=== PATIENT | female | born 1985 | race African-American/Black ===

== ENCOUNTER → 2016-10-27 | Outpatient (CLI) | payer SELFPAY | LOC: RAD 14:37 | PROVIDERS: ATTEND Nurse Practitioner Women's Health | DX: Z34.81 Encounter for supervision of other normal pregnancy, first trimester (principal) | CPT/HCPCS: 76801 ==

== ENCOUNTER → 2017-08-23 | Outpatient (CLI) | payer SELFPAY ==
--- NOTE | 2017-08-23 15:09 | RADIOLOGY REPORT (SQ) ---
EXAM DESCRIPTION: U/S SQ0ECLC TRNABD 1GES W/ODOP COMPLETED DATE/TIME: 08/23/2017 2:28 pm REASON FOR STUDY: ENCOUNTER FOR SUPERVISION OF NORMAL , UNSPECIFIED FIRST TIME Z34.91 ENCN TR FOR SUPRVSN OF NORMAL PREG, UNSP, FIRST TRIMES COMPARISON: No previous this TECHNIQUE: Transabdominal static and realtime grayscale images acquired of the pelvis. Additional se lected spectral and color Doppler images recorded. All images stored on PACs. bHCG: Not available LIMITATIONS: None. FINDINGS: FETUS: Living intrauterine . EGA: 7 weeks 4 days by crown-rump length ERIKA: 04/07/2018 FHR: 165 beats per minute. SUBCHORIONIC BLEED: Yes SIZE OF BLEED: 1.5 cm in size UTERUS: No masses. No anomalies. Uterus is 11 x 7 x 7 cm in size CERVICAL LENGTH: Not well seen RIGHT ADNEXA: Not visualized due to bowel gas LEFT ADNEXA: Normal ovary with normal vascular flow. Left ovary 3 x 2.7 x 1.7 cm in size No adnexal free fluid. No adnexal masses. FREE FLUID: None. OTHER: No other significant finding. IMPRESSION: LIVING INTRAUTERINE . EGA 7 weeks 4 days. Small subchorionic hemorrhage. Trimester of : First - 0 to 13 weeks. TECHNICAL DOCUMENTATION: JOB ID: [id number] [employer]- All Rights Reserved
== END ==
LOC: RAD 15:20
PROVIDERS: ATTEND Nurse Practitioner Women's Health
DX: Z34.91 Encounter for supervision of normal pregnancy, unspecified, first trimester (principal)
CPT/HCPCS: 76801

== ENCOUNTER 2018-02-26 12:24 | Outpatient (CLI) | payer MEDICAID ==
[2018-02-26 13:13] LABS: APPEARANCE,URINE CLOUDY; BILIRUBIN,URINE NEGATIVE (NEGATIVE); COLOR,URINE YELLOW; GLUCOSE, URINE NEGATIVE (NEGATIVE); KETONES,URINE NEGATIVE (NEGATIVE); LEUKOCYTE ESTERASE,URINE MODERATE (NEGATIVE); NITRITE,URINE NEGATIVE (NEGATIVE); PROTEIN,URINE 100 mg/dL (NEGATIVE); URINE SPECIFIC GRAVITY 1.023
[2018-02-26 13:27] LABS: UR PRO/CREAT RATIO RESULT 0.2 mg/mg (0.0-0.2); URINE CREATININE 329.3 mg/dL (16-327); URINE PROTEIN 61.6 mg/dL (<12)
--- NOTE | 2018-02-26 13:39 | L&D Progress Notes ---
PROGRESS NOTES Datetime Report Generated by CPN: 02/26/2018 13:39 PROGRESS NOTE Impression: Reassuring Heart Rate Procedures- Other: NST and Urine PCR Plan: Discharge Vital Signs : Reviewed; Within Normal Limits Comment: Pt sent over from the office for NST and Urine PCR. Cat 1 NST and urine PCR 0.20. Pt doing well today. Will d/c home and pt is to f/u at the office as scheduled. FETUS A Monitoring: External US FHR Category: Category I SIGNATURE SIGNATURE: [id number] Assignment: Brenda Lerma MD Signature: with User ID: Samuel : with User ID: Samuel
--- NOTE | 2018-02-26 13:51 | Non Stress Test Report ---
Non Stress Test Datetime Report Generated by CPN: 02/26/2018 13:50 DEMOGRAPHIC EGA NST: 34.2 INDICATION Indication for Study: Ordered by Provider MONITORING Monitor Explained: Monitor Explained; Test Explained; Patient Verbalized Understanding Time on Monitor: 02/26/2018 12:38 Time off Monitor: 02/26/2018 13:12 NST Duration: 34 NST INTERVENTIONS NST Interventions: PO Hydration; Reposition Patient Physician Notified NST: N Pack CNM BABY A: [id number] BABY A Movement : Present Contraction Frequency : denies FHR Baseline : 140 Accelerations : 15X15 Variability : Moderate 6-25bpm NST Review: Meets Criteria for Reactive NST NST Review and Verified By : ANI CRAIG, RN NST Results: Reactive NST REPORT Report Trigger: Send Report
== END 2018-02-26 13:44 | disposition home or self-care (01) ==
LOC: LC 12:24
PROVIDERS: ATTEND Obstetrics & Gynecology
PROC: 4A1HXCZ Monitoring of Products of Conception, Cardiac Rate, External Approach (ICD-10-PCS; principal; 2018-02-26)
DX: Z34.83 Encounter for supervision of other normal pregnancy, third trimester (principal)
CPT/HCPCS: 59025; 81001; 82570; 84156

== ENCOUNTER 2018-04-02 05:13 | Inpatient (IN) | payer MEDICAID ==
[2018-03-30 11:44] LABS: APPEARANCE,URINE SLIGHTLY-CLOUDY; BILIRUBIN,URINE NEGATIVE (NEGATIVE); COLOR,URINE YELLOW; GLUCOSE, URINE NEGATIVE (NEGATIVE); KETONES,URINE NEGATIVE (NEGATIVE); LEUKOCYTE ESTERASE,URINE MODERATE (NEGATIVE); NITRITE,URINE NEGATIVE (NEGATIVE); PROTEIN,URINE NEGATIVE (NEGATIVE); URINE SPECIFIC GRAVITY 1.008; UROBILINOGEN,URINE NEGATIVE mg/dL (<2.0)
[2018-03-30 12:17] LABS: URINE AMPHETAMINES SCREEN NEGATIVE; URINE BARBITURATES SCREEN NEGATIVE; URINE BENZODIAZEPINES SCREEN NEGATIVE; URINE COCAINE SCREEN NEGATIVE; URINE METHADONE SCREEN NEGATIVE; URINE PHENCYCLIDINE SCREEN NEGATIVE
[2018-03-30 13:22] LABS: URINE MARIJUANA (THC) SCREEN UNCONFIRMED POSITIVE
[2018-04-01 16:04] LABS: ABSOLUTE EOSINOPHILS # (AUTO) 0.1 10^3/uL (0.0-0.6); ABSOLUTE LYMPHOCYTES (AUTO) 2.1 10^3/uL (0.5-4.7); ABSOLUTE MONOCYTES (AUTO) 0.5 10^3/uL (0.1-1.4); ABSOLUTE NEUT (AUTO) 5.1 10^3/uL (1.7-8.2); BASOPHILS % (AUTO) 0.5 % (0-2); EOSINOPHILS % (AUTO) 1.6 % (0-6); HEMATOCRIT 30.9 % (36.0-47.0); HEMOGLOBIN 10.6 g/dL (12.0-15.5); LYMPHOCYTES % (AUTO) 26.6 % (13-45); MEAN CORPUSCULAR HEMOGLOBIN 31.1 pg (27.0-33.4); MEAN CORPUSCULAR HGB CONC 34.3 g/dL (32.0-36.0); MEAN CORPUSCULAR VOLUME 91 fl (80-97); MONOCYTES % (AUTO) 5.9 % (3-13); PLATELET COUNT 268 10^3/uL (150-450); RED CELL DISTRIBUTION WIDTH 14.3 % (11.5-14.0); SEGMENTED NEUTROPHILS % (AUTO) 65.4 % (42-78); TOTAL CELLS COUNTED % (AUTO) 100 %; WHITE BLOOD COUNT 7.8 10^3/uL (4.0-10.5)
[~2018-04-02 05:13] MED LIST: CEFAZOLIN 1 GM/D5W RTU 1 GM/50 ML RTUPB IV PRN; LACTATED RINGERS 1000 ML IV PRN; LIDOCAINE 0.5% INJ-PF (5 MG/ML) 50 ML SDV SUBCUT PRN; RINGERS SOLUTION,LACTATED 1,000 ML IV PRN
[2018-04-02] MEDS ORDERED: CEFAZOLIN 1 GM/D5W RTU 1 GM/50 ML RTUPB IV ONE (05:40)
[2018-04-02] MEDS ORDERED: EPHEDRINE SULFATE INJ 50 MG/1 ML AMPULE ONE (06:40)
[2018-04-02] MEDS ORDERED: ONDANSETRON HCL INJ/PF 4 MG/2 ML SDV ONE (06:40)
[2018-04-02] MEDS ORDERED: BUPIVACAINE HCL/DEX-WATER/PF 15 MG/2 ML AMPULE ONE (06:40)
[2018-04-02] MEDS ORDERED: MIDAZOLAM 2 MG/2 ML INJ ONE (06:41)
[2018-04-02] MEDS ORDERED: FENTANYL CITRATE INJ/PF 100 MCG/2 ML AMPUL ONE ×2 (06:41→09:22)
[2018-04-02] MEDS ORDERED: OXYTOCIN 10 UNIT/ML VIAL ONE (06:41)
[2018-04-02] MEDS ORDERED: CEFAZOLIN INJ 1 GM VIAL ONE (07:44)
[2018-04-02] MEDS ORDERED: MEPERIDINE HCL/PF INJ 25 MG/1 ML DISP.SYRIN IV PRN (08:16)
[2018-04-02] MEDS ORDERED: FENTANYL CITRATE INJ/PF 100 MCG/2 ML AMPUL IV PRN ×2 (08:16)
[2018-04-02] MEDS ORDERED: PROMETHAZINE HCL INJ 25 MG/1 ML VIAL IV PRN ×2 (08:16→09:19)
[2018-04-02] MEDS ORDERED: MEASLES,MUMPS&RUBELLA VACC/PF 0.5 ML VIAL SUBCUT PRN (09:19)
[2018-04-02] MEDS ORDERED: SIMETHICONE 80 MG TAB.CHEW PO PRN (09:19)
[2018-04-02] MEDS ORDERED: ACETAMINOPHEN 325 MG TABLET PO PRN (09:19)
[2018-04-02] MEDS ORDERED: OXYTOCIN/NORMAL SALINE 20 UNIT/1,000 ML RTUINJ IV PRN (09:19)
[2018-04-02] MEDS ORDERED: DIPH/PERTUSS(ACELL)/TETANUS VAC/PF 0.5 ML SYR (>=10YO) IM PRN (09:19)
[2018-04-02] MEDS: FENTANYL CITRATE INJ/PF 100 MCG/2 ML AMPUL IV PRN ×2 (09:26→09:53)
[2018-04-02] MEDS ORDERED: HYDROMORPHONE HCL INJ/PF 2 MG/ML AMPULE ONE (10:26)
[2018-04-02] MEDS: HYDROMORPHONE HCL INJ/PF 2 MG/ML AMPULE IV PRN ×2 (10:30→15:13)
[2018-04-02] MEDS ORDERED: DIPHENHYDRAMINE HCL 50 MG/ML VIAL ONE (10:38)
[2018-04-02] MEDS: DIPHENHYDRAMINE HCL 50 MG/ML VIAL IV PRN ×2 (10:41→10:59)
[2018-04-02] MEDS: PRENATAL VITAMIN W DHA CAPSULE PO SCH (11:46)
[2018-04-02] MEDS: DOCUSATE SODIUM 100 MG CAPSULE PO SCH ×2 (11:46→17:53)
[2018-04-02] MEDS: OXYCODONE-ACETAMINOPHEN 5-325 MG TABLET PO PRN (12:21)
[2018-04-02] MEDS ORDERED: MISOPROSTOL 0.2 MG TABLET ONE (14:07)
--- NOTE | 2018-04-02 14:26 | Operative Report ---
Operative Report DATE OF SURGERY: 04/02/18 PREOPERATIVE DIAGNOSIS: 1. Term . 2. section x1. 3. Rh+. 4. Rubella immune. 5. Anemia POSTOPERATIVE DIAGNOSIS: Same OPERATION: Repeat section SURGEON: SLIM REYES ANESTHESIA: Spinal TISSUE REMOVED OR ALTERED: Placenta COMPLICATIONS: None ESTIMATED BLOOD LOSS: 800 mL INTRAOPERATIVE FINDINGS: 1. Female fetus in a cephalic position; Apgars 8 at 1 , 9 at 5 with a weight of 7 pounds 14 ounces. 2. Normal uterus, tubes and ovaries PROCEDURE: The patient was taken to the operating room where spinal anesthesia was secured without difficulty. A Boss catheter was then placed in the patient's bladder. She was then prepared and draped in a normal sterile fashion in the dorsal supine position with a leftward tilt. A Pfannenstiel skin incision was made using her previous incision as a guide, with a scalpel and carried through to the underlying layer of fascia. The fascia was then incised in the midline and the incision was extended laterally with the Salmeron scissors. The superior aspect of the fascial incision was then grasped with Rod clamps, elevated, and underlying rectus muscles were dissected off both bluntly and sharply. Attention was then turned to the inferior aspect of this incision which, in a similar fashion, was grasped, tented up with Rod clamps, and the rectus muscles dissected off both bluntly and sharply. The rectus muscles were then in the midline and the peritoneum was identified, tented up and entered sharply with the Metzenbaum scissors. The peritoneal incision was then extended superiorly and inferiorly with good visualization of the bladder. The bladder blade was then inserted and the vesicouterine peritoneum was identified , grasped with pickups and entered sharply with the Metzenbaum scissors. This incision was then extended laterally and the bladder flap digitally. Bladder blade was then reinserted and the lower uterine segment was incised in a transverse fashion with scalpel. The uterine incision was then extended laterally, digitally, as well with the bandage scissors. The bladder blade was then removed and the infant's head was delivered atraumatically. The nose and mouth were suctioned with the bulb suction and the cord was clamped and cut. The infant was handed off to the awaiting yeast cake cutter. Cord blood was obtained. The placenta was then removed manually, uterus exteriorized and cleared of all clots and debris. The uterine incision was then repaired with 0 Vicryl in a running, locked fashion. A second layer using 0 chromic was used to imbricate the incision for excellent hemostasis. The bladder flap was then repaired with 3-0 Vicryl in a running fashion. The abdomen was then copiously irrigated with warm normal saline and the uterus was was returned to the abdomen. The gutters were then cleared of all clots and debris. A piece of Interceed was placed over the uterine incision as well as a piece vertically on the anterior surface of the uterus. The peritoneum was closed with 2-0 Vicryl in a running fashion. The fascia was then reapproximated with 0 Vicryl in a running fashion. Subcutaneous fat layer was then closed in an interrupted fashion with 3-0 Vicryl. The skin was then closed in a subcuticular fashion with 4-0 Monocryl. Patient tolerated the procedure well. Sponge, lap, needle and instrument counts were correct x2. 2 g of Ancef was given prior to the start of the procedure. Patient was taken to the recovery room in stable condition.
[2018-04-02] MEDS: KETOROLAC TROMETHAMINE INJ/PF 30 MG/1 ML SDV IV SCH ×2 (16:33→21:18)
[2018-04-02] MEDS ORDERED: IBUPROFEN 800 MG TABLET PO PRN (18:15)
[2018-04-03] MEDS: OXYCODONE-ACETAMINOPHEN 5-325 MG TABLET PO PRN ×3 (00:08→09:44)
[2018-04-03] MEDS: KETOROLAC TROMETHAMINE INJ/PF 30 MG/1 ML SDV IV SCH (05:38)
[2018-04-03 06:36] LABS: HEMOGLOBIN 9.4 g/dL (12.0-15.5); MEAN CORPUSCULAR HEMOGLOBIN 31.5 pg (27.0-33.4); MEAN CORPUSCULAR HGB CONC 34.8 g/dL (32.0-36.0); MEAN CORPUSCULAR VOLUME 91 fl (80-97); PLATELET COUNT 198 10^3/uL (150-450); RED BLOOD COUNT 2.98 10^6/uL (3.72-5.28)
--- NOTE | 2018-04-03 08:01 | PDOC PROGRESS REPORT ---
Subjective Progress Note for:: 04/03/18 Subjective:: Patient states that she feels good; decreasing lochia. Pain is controlled. Patient denies chest pain, shortness of breath, fever/chills or nausea/ vomiting. She is ambulating and voiding without difficulty. Reason For Visit: O34.219 MATERNAL CARE FOR UNSP TYPE SCAR FROM PREV Physical Exam - Physical Exam Vital Signs: Temp Pulse Resp BP Pulse Ox 98.0 F 78 15 126/63 H 100 04/03/18 04:20 04/03/18 04:20 04/03/18 04:20 04/03/18 04:20 04/03/18 04:20 Intake & Output 04/02/18 04/03/18 04/04/18 06:59 06:59 06:59 Intake Total 4030 Output Total 1700 Balance 2330 Weight 195.6 kg General appearance: PRESENT: no acute distress Respiratory exam: PRESENT: clear to auscultation onel Cardiovascular exam: PRESENT: RRR GI/Abdominal exam: PRESENT: normal bowel sounds, soft, tenderness - Incision: Clean/dry/intact; no erythema Extremities exam: ABSENT: calf tenderness, clubbing, full ROM, joint swelling, pedal edema, tenderness, +1 edema, +2 edema, other Result Laboratory Results: 04/03/18 06:27 04/03/18 06:27 WBC 11.0 H RBC 2.98 L Hgb 9.4 L Hct 27.0 L MCV 91 MCH 31.5 MCHC 34.8 RDW 14.0 Plt Count 198 Assessment & Plan - Diagnosis (1) Anemia, antepartum Is this a current diagnosis for this admission?: Yes (2) Status post repeat low transverse section Is this a current diagnosis for this admission?: Yes - Plan Summary Plan Summary: Plan: 1. POD#1--status post repeat section--doing well surgically 2. Anemia--stable; will receive IV iron today 3. Continue postoperative care
[2018-04-03] MEDS: DOCUSATE SODIUM 100 MG CAPSULE PO SCH ×2 (09:44→18:23)
[2018-04-03] MEDS ORDERED: IRON SUCROSE COMPLEX INJ/PF 100 MG/5 ML SDV IV ONE ×2 (10:00→11:00)
[2018-04-03] MEDS: PRENATAL VITAMIN W DHA CAPSULE PO SCH (10:06)
[2018-04-03] MEDS: IBUPROFEN 800 MG TABLET PO SCH ×3 (12:14→23:06)
[2018-04-04] MEDS: OXYCODONE-ACETAMINOPHEN 5-325 MG TABLET PO PRN (03:52)
[2018-04-04] MEDS: IBUPROFEN 800 MG TABLET PO SCH ×2 (05:18→14:27)
[2018-04-04] MEDS: PRENATAL VITAMIN W DHA CAPSULE PO SCH (10:43)
[2018-04-04] MEDS: DOCUSATE SODIUM 100 MG CAPSULE PO SCH (10:43)
[2018-04-04 12:38] VITALS: BP 125/84
--- NOTE | 2018-04-04 14:28 | PDOC DISCHARGE SUMMARY ---
Final Diagnosis Discharge Date: 04/04/18 - Final Diagnosis (1) Anemia, antepartum Is this a current diagnosis for this admission?: Yes (2) Status post repeat low transverse section Is this a current diagnosis for this admission?: Yes Discharge Data - Discharge Medication Prescriptions: Oxycodone HCl/Acetaminophen [Percocet 5-325 mg Tablet] 1 tab PO Q4HP PRN #30 tablet PRN Reason: For Pain Scale 3-5 Ibuprofen [Motrin 800 mg Tablet] 800 mg PO Q8HP PRN #30 tablet PRN Reason: Abdominal Cramping Docusate Sodium [Colace 100 mg Capsule] 100 mg PO BID #60 capsule Home Medications: Cyanocobalamin (Vitamin B-12) [Vitamin B-12] 1,000 mcg PO DAILY 03/30/18 Ferrous Sulfate [Iron] 162.5 mg PO DAILY 03/30/18 Vits96/Iron Fum/Folic [ Tablet] 1 each PO DAILY 03/30/18 Docusate Sodium [Colace 100 mg Capsule] 100 mg PO BID #60 capsule 04/04/18 Ibuprofen [Motrin 800 mg Tablet] 800 mg PO Q8HP PRN #30 tablet 04/04/18 Oxycodone HCl/Acetaminophen [Percocet 5-325 mg Tablet] 1 tab PO Q4HP PRN #30 tablet 04/04/18 Reason(s) for Admission: Ceasarean Section-Repeat Procedures: Ultrasound Intrapartum Procedure(s): : Low Cervical, Transverse - Diagnosis Test Laboratory: Temp Pulse Resp BP Pulse Ox 98.4 F 72 18 131/79 H 98 04/04/18 08:30 04/04/18 08:30 04/04/18 08:30 04/04/18 08:30 04/04/18 08:30 03/30/18 04/01/18 04/03/18 10:30 15:40 06:27 RBC 3.40 L 2.98 L Hgb 10.6 L 9.4 L Hct 30.9 L 27.0 L Urine Opiates Screen NEGATIVE - Discharge information/Instructions Discharge Activity: Activity As Tolerated, Balance Activity w/Rest, No Driving, No Lifting Over 10 Pounds, Pelvic Rest, Supervised Activity Discharge Diet: As Tolerated, Regular Disposition: HOME, SELF-CARE Follow up with: [facility] in: 2, Days - bp check
== END 2018-04-04 15:19 | disposition home or self-care (01) | DRG 788 ==
LOC: 2S 05:13
PROVIDERS: ADMIT Obstetrics & Gynecology Gynecology; ATTEND Obstetrics & Gynecology Gynecology
PROC: 4A1HXCZ Monitoring of Products of Conception, Cardiac Rate, External Approach (ICD-10-PCS; 2018-04-02)
PROC: 10D00Z1 Extraction of Products of Conception, Low, Open Approach (ICD-10-PCS; principal; 2018-04-02 07:45)
DX: O34.211 Maternal care for low transverse scar from previous cesarean delivery (principal); O99.02 Anemia complicating childbirth; D64.9 Anemia, unspecified; E28.2 Polycystic ovarian syndrome; O34.83 Maternal care for other abnormalities of pelvic organs, third trimester; O28.5 Abnormal chromosomal and genetic finding on antenatal screening of mother; Z82.49 Family history of ischemic heart disease and other diseases of the circulatory system; Z84.1 Family history of disorders of kidney and ureter; Z80.6 Family history of leukemia; Z83.3 Family history of diabetes mellitus; Z37.0 Single live birth
CPT/HCPCS: 1961; 36415; 59025; 80307; 81001; 85025; 85027; 86850; 86900; 86901; 90471; 90686; 94799; C1765; G0008; J0690; J1170; J1200; J1756; J1885; J2250; J2405; J2590; J3010; J3490

== ENCOUNTER 2019-08-15 10:58 | Emergency (ER) | payer SELFPAY ==
--- NOTE | 2019-08-15 11:38 | ER Document Report ---
ED Medical Screen (RME) - General Chief Complaint: Near Syncope Stated Complaint: POSSIBLE SYNCOPE Time Seen by Provider: 08/15/19 11:27 Primary Care Provider: REGGIE AMIN NP [Primary Care Provider] - Follow up as needed TRAVEL OUTSIDE OF THE [place] IN LAST 30 DAYS: No - HPI Notes: 08/15/19 11:35 Patient is a 34-year-old female with no significant past medical history presen ts with significant other complaining of syncopal episode that occurred this morning. Patient states that she got up out of bed sat on the toilet started urinating, and does not recall anything after that. Significant other states that he heard a thud on the ground and saw her in the bathroom shaking which lasted for a brief period. Significant other states that she was confused thereafter and breathing somewhat heavy. Patient states that she has had a headache since then and did bite her tongue. She has been having right upper quadrant abdominal pain since last night and has associated nausea and vomiting today as well. No fever, chest pain, or shortness of breath. I have treated and performed a rapid initial assessment of this patient. A comprehensive ED assessment and evaluation of the patient, analysis of test results and completion of medical decision making process will be conducted by additional ED providers. PHYSICAL EXAMINATION: GENERAL: Well-appearing, well-nourished and in no acute distress. A&Ox4. Answers questions appropriately. Mouth: There is a tongue bite noted on the left side Head/neuro: NIH 0, GCS 15, cranial nerves grossly intact. No hemotympanum. No mclaughlin sign. Atraumatic. - Related Data Allergies/Adverse Reactions: amoxicillin [Amoxicillin] Allergy (Verified 08/15/19 11:19) Coconut * [Coconut] Allergy (Verified 08/15/19 11:19) lactose Allergy (Verified 08/15/19 11:19) latex [Latex] Allergy (Verified 08/15/19 11:19) bees Allergy (Uncoded 08/15/19 11:19) Home Medications: prenatals Past Medical History - Social History Frequency of alcohol use: Rare Drug Abuse: Marijuana Pulmonary Medical History: Reports: Hx Bronchitis Past Surgical History: Reports: Hx Section - Immunizations Hx Diphtheria, Pertussis, Tetanus Vaccination: Yes - 2007 Physical Exam - Vital signs Vitals: Temp Pulse Resp BP Pulse Ox 97.8 F 79 16 134/70 H 99 08/15/19 11:03 08/15/19 11:03 08/15/19 11:03 08/15/19 11:03 08/15/19 11:03 Course - Vital Signs Vital signs: Temp Pulse Resp BP Pulse Ox 97.8 F 79 16 134/70 H 99 08/15/19 11:03 08/15/19 11:03 08/15/19 11:03 08/15/19 11:03 08/15/19 11:03 Doctor's Discharge - Discharge Referrals: REGGIE AMIN, LEGAL ADVISOR [Primary Care Provider] - Follow up as needed
[2019-08-15] MEDS ORDERED: ONDANSETRON 4 MG TAB.RAPDIS PO ONE (11:39)
[2019-08-15] MEDS ORDERED: NORMAL SALINE 1000 ML 1,000 ML IV PRN (11:39)
[2019-08-15] MEDS ORDERED: ACETAMINOPHEN 325 MG TABLET PO ONE (11:53)
[2019-08-15] MEDS ORDERED: METOCLOPRAMIDE HCL 10 MG TABLET PO ONE (11:56)
[2019-08-15 12:15] LABS: ABSOLUTE EOSINOPHILS # (AUTO) 0.1 10^3/uL (0.0-0.6); ABSOLUTE LYMPHOCYTES (AUTO) 1.5 10^3/uL (0.5-4.7); ABSOLUTE MONOCYTES (AUTO) 0.3 10^3/uL (0.1-1.4); ABSOLUTE NEUT (AUTO) 2.5 10^3/uL (1.7-8.2); BASOPHILS % (AUTO) 0.8 % (0-2); EOSINOPHILS % (AUTO) 3.1 % (0-6); HEMATOCRIT 41.1 % (36.0-47.0); HEMOGLOBIN 13.8 g/dL (12.0-15.5); LYMPHOCYTES % (AUTO) 33.6 % (13-45); MEAN CORPUSCULAR HEMOGLOBIN 30.6 pg (27.0-33.4); MEAN CORPUSCULAR HGB CONC 33.6 g/dL (32.0-36.0); MEAN CORPUSCULAR VOLUME 91 fl (80-97); PLATELET COUNT 247 10^3/uL (150-450); RED BLOOD COUNT 4.51 10^6/uL (3.72-5.28); SEGMENTED NEUTROPHILS % (AUTO) 55.5 % (42-78); TOTAL CELLS COUNTED % (AUTO) 100 %; WHITE BLOOD COUNT 4.6 10^3/uL (4.0-10.5)
[2019-08-15 12:30] LABS: ALBUMIN 4.2 g/dL (3.5-5.0); ALKALINE PHOSPHATASE 62 U/L (38-126); ANION GAP 7 (5-19); ASPARTATE AMINO TRANSFERASE 20 U/L (14-36); BILIRUBIN,TOTAL 0.4 mg/dL (0.2-1.3); BLOOD UREA NITROGEN 10 mg/dL (7-20); CALCIUM 9.6 mg/dL (8.4-10.2); CARBON DIOXIDE 28 mmol/L (22-30); CHLORIDE 105 mmol/L (98-107); GLUCOSE 94 mg/dL (75-110); POTASSIUM 4.1 mmol/L (3.6-5.0); TOTAL PROTEIN 7.3 g/dL (6.3-8.2)
--- NOTE | 2019-08-15 13:04 | RADIOLOGY REPORT (SQ) ---
EXAM DESCRIPTION: CT HEAD WITHOUT COMPLETED DATE/TIME: 08/15/2019 12:47 pm REASON FOR STUDY: syncopal episode vs seizure, LOC COMPARISON: None. TECHNIQUE: Axial images acquired through the brain without intravenous contrast. Images reviewed wi th bone, brain and subdural windows. Additional sagittal and coronal reconstructions were generated. Images stored on PACS. All CT scanners at this facility use dose modulation, iterative reconstruction, and/or weight based d osing when appropriate to reduce radiation dose to as low as reasonably achievable (ALARA). [facility]: Dose Right [facility]: CareDose [facility]: Dose Right [facility]: Teradose 4D [facility]: NuPotential RADIATION DOSE: CT Rad equipment meets quality standard of care and radiation dose reduction techniq ues were employed. CTDIvol: 53.2 mGy. DLP: 1097 mGy-cm. mGy. LIMITATIONS: None. FINDINGS: VENTRICLES: Normal size and contour. CEREBRUM: No masses. No hemorrhage. No midline shift. No evidence for acute infarction. Normal gra y/white matter differentiation. No areas of low density in the white matter. CEREBELLUM: No masses. No hemorrhage. No alteration of density. No evidence for acute infarction. EXTRAAXIAL SPACES: No fluid collections. No masses. ORBITS AND GLOBE: No intra- or extraconal masses. Normal contour of globe without masses. CALVARIUM: No fracture. PARANASAL SINUSES: No fluid or mucosal thickening. SOFT TISSUES: No mass or hematoma. OTHER: No other significant finding. IMPRESSION: NORMAL BRAIN CT WITHOUT CONTRAST. EVIDENCE OF ACUTE STROKE: NO. COMMENT: Quality ID # [id number]: Final reports with documentation of one or more dose reduction techniques (e.g., Automated exposure control, adjustment of the mA and/or kV according to patient size, use of iterative reconstruction technique) TECHNICAL DOCUMENTATION: JOB ID: [id number] 2010 [employer]- All Rights Reserved Reading location - IP/workstation name: [email or web address]
--- NOTE | 2019-08-15 13:07 | RADIOLOGY REPORT (SQ) ---
EXAM DESCRIPTION: CHEST SINGLE VIEW COMPLETED DATE/TIME: 08/15/2019 12:54 pm REASON FOR STUDY: syncopal episode, cough COMPARISON: None. EXAM PARAMETERS: NUMBER OF VIEWS: One view. TECHNIQUE: Single frontal radiographic view of the chest acquired. RADIATION DOSE: NA LIMITATIONS: None. FINDINGS: LUNGS AND PLEURA: No opacities, masses or pneumothorax. No pleural effusion. MEDIASTINUM AND HILAR STRUCTURES: No masses. Contour normal. HEART AND VASCULAR STRUCTURES: Heart normal in size. Normal vasculature. BONES: No acute findings. HARDWARE: None in the chest. OTHER: No other significant finding. IMPRESSION: NO ACUTE RADIOGRAPHIC FINDING IN THE CHEST. TECHNICAL DOCUMENTATION: JOB ID: [id number] 2010 [employer]- All Rights Reserved Reading location - IP/workstation name: [email or web address]
--- NOTE | 2019-08-15 13:30 | EKG REPORT ---
SEVERITY:- NORMAL ECG - SINUS RHYTHM : Confirmed by: Otis Neil MD 15-Aug-2019 13:29:42
--- NOTE | 2019-08-15 15:31 | ER Document Report ---
ED General - General Chief Complaint: Near Syncope Stated Complaint: POSSIBLE SYNCOPE Time Seen by Provider: 08/15/19 11:27 Primary Care Provider: REGGIE AMIN NP [NO LOCAL MD] - Follow up as needed Notes: Patient is a 34-year-old -Slov[place] female with a past medical history significant for chronic constipation on [employer]ote[employer] who presents to the emergency department with a chief complaint of a syncopal episode that occurred this morning around 11 AM. Patient states that she had gotten out of bed gone to the bathroom and was attempting to have a bowel movement. Her significant other reports that he heard a sudden thud in the bathroom and went to check on her. He states that she was unconscious lying on the ground and had struck her head on the shower door. He states when she opened her eyes she seemed a little slow to come to and was confused about what happened. He states she was otherwise or iented to person place and time. He states she seemed a little somnolent since that time but is quickly returning to normal. The patient does admit to some right-sided abdominal discomfort. She reports soreness to the right forehead where she struck her head as well as some accompanying nausea and dry heaving. She denies any diarrhea. She denies any fever chills or night sweats. Denies any history of seizures. She does add that she has had a history of panic attacks as a child and would occasionally pass out with a panic attack. She also reports that she has had episodes in the past with troubling bowel movements where she is had syncopal-like episodes. She sees a property worker for her constipation. TRAVEL OUTSIDE OF THE [place] IN LAST 30 DAYS: No - Related Data Allergies/Adverse Reactions: amoxicillin [Amoxicillin] Allergy (Verified 08/15/19 11:19) Coconut * [Coconut] Allergy (Verified 08/15/19 11:19) lactose Allergy (Verified 08/15/19 11:19) latex [Latex] Allergy (Verified 08/15/19 11:19) bees Allergy (Uncoded 08/15/19 11:19) Home Medications: prenatals Past Medical History - Social History Smoking Status: Current Every Day Smoker Frequency of alcohol use: Rare Drug Abuse: Marijuana Family History: None Patient has suicidal ideation: No Patient has homicidal ideation: No Pulmonary Medical History: Reports: Hx Bronchitis Past Surgical History: Reports: Hx Section - Immunizations Hx Diphtheria, Pertussis, Tetanus Vaccination: Yes - 2007 Review of Systems - Review of Systems Cardiovascular: denies: Chest pain Respiratory: denies: Short of breath Gastrointestinal: Abdominal pain, Nausea, Constipation Skin: Other - Bruising Neurological/Psychological: Other - Headache -: Yes All other systems reviewed and negative Physical Exam - Vital signs Vitals: Temp Pulse Resp BP Pulse Ox 97.8 F 79 16 134/70 H 99 08/15/19 11:03 08/15/19 11:03 08/15/19 11:03 08/15/19 11:03 08/15/19 11:03 - General General appearance: Appears well, Alert In distress: None - HEENT Head: Normocephalic, Atraumatic Eyes: Normal Conjunctiva: Normal Extraocular movements intact: Yes Eyelashes: Normal Pupils: PERRL Ears: Normal External canal: Normal Tympanic membrane: Normal Sinus: Normal Nasal: Normal Mouth/Lips: Normal Mucous membranes: Normal Pharynx: Normal Neck: Normal - Respiratory Respiratory status: No respiratory distress Chest status: Nontender Breath sounds: Normal Chest palpation: Normal - Cardiovascular Rhythm: Regular Heart sounds: Normal auscultation Murmur: No - Abdominal Inspection: Normal Distension: No distension Bowel sounds: Normal Tenderness: Other - Diffuse tenderness to palpation, worse in the right upper quadrant - Back Back: Normal, Nontender - Extremities General upper extremity: Normal inspection, Nontender, Normal color, Normal ROM, Normal temperature General lower extremity: Normal inspection, Nontender, Normal color, Normal ROM, Normal temperature, Normal weight bearing. No: Amberly's sign - Neurological Neuro grossly intact: Yes Cognition: Normal Orientation: AAOx4 Yaniv Coma Scale Eye Opening: Spontaneous River Coma Scale Verbal: Oriented River Coma Scale Motor: Obeys Commands River Coma Scale Total: 15 Speech: Normal Sensory: Normal - Psychological Associated symptoms: Normal affect, Normal mood - Skin Skin Temperature: Warm Skin Moisture: Dry Skin Color: Normal Course - Re-evaluation Re-evalutation: 08/15/19 16:59 Patient received a liter of fluids along with her other medications here. Reevaluation at this time, she is resting comfortably in the room. States she is feeling much better. Her history and physical are consistent with vasovagal syncope, gallstones, and forehead contusion with a mild concussion. Counseled the patient regarding concussion protocol. Discussed with her the importance of outpatient follow-up and advised that she return here or any ER immediately with any new, persistent or worsening symptoms. She verbalized understood and agreed. - Vital Signs Vital signs: Temp Pulse Resp BP Pulse Ox 97.8 F 79 16 134/70 H 99 08/15/19 11:03 08/15/19 11:03 08/15/19 11:03 08/15/19 11:03 08/15/19 11:03 - Laboratory Result Diagrams: 08/15/19 12:00 08/15/19 12:00 Laboratory results interpreted by me: 08/15/19 08/15/19 12:00 15:10 Creatine Kinase 244 H Urine Blood MODERATE H Discharge - Discharge Clinical Impression: Vasovagal syncope, Gallstones Head contusion Qualifiers: Encounter type: initial encounter Contusion of head detail: unspecified part of head Qualified Code(s): S00.93XA - Contusion of unspecified part of head, initial encounter Concussion Qualifiers: Encounter type: initial encounter Loss of consciousness presence/duration: with LOC of 30 min or less Qualified Code(s): S06.0X1A - Concussion with loss of consciousness of 30 minutes or less, initial encounter Condition: Stable Disposition: HOME, SELF-CARE Instructions: Gallbladder Disease ([facility]), Concussion ([facility]), Vasovagal Symptoms ([facility]) Additional Instructions: Follow-up with your regular doctor in 2 to 3 days for reevaluation. Return here or any ER immediately with any new, persistent or worsening symptoms. Prescriptions: Ondansetron [Zofran Odt 4 mg Tablet] 1 - 2 tab PO Q8 #20 tab.rapdis Referrals: REGGIE AMIN, LAURIE [NO LOCAL MD] - Follow up as needed
[2019-08-15] MEDS ORDERED: KETOROLAC TROMETHAMINE INJ/PF 30 MG/1 ML SDV IV ONE (15:32)
--- NOTE | 2019-08-15 15:33 | RADIOLOGY REPORT (SQ) ---
EXAM DESCRIPTION: U/S ABDOMEN LIMITED W/O DOP COMPLETED DATE/TIME: 08/15/2019 2:49 pm REASON FOR STUDY: RUQ pain COMPARISON: None. TECHNIQUE: Dynamic and static grayscale images acquired of the abdomen and recorded on PACS. Additio nal selected color Doppler and spectral images recorded. LIMITATIONS: None. FINDINGS: PANCREAS: No masses. Visualized pancreatic duct normal caliber. LIVER: No masses. Echotexture normal. LIVER VASCULATURE: Normal directional flow of the main portal vein and hepatic veins. GALLBLADDER: Gallstone(s). No pericholecystic fluid. No wall thickening. ULTRASOUND-DETECTED ZEPEDA'S SIGN: Negative. INTRAHEPATIC DUCTS AND COMMON DUCT: CBD and intrahepatic ducts normal caliber. No filling defects. INFERIOR VENA CAVA: Normal flow. AORTA: No aneurysm. RIGHT KIDNEY: Normal size. Normal echogenicity. No solid or suspicious masses. No hydronephrosis. No calcifications. PERITONEAL AND RIGHT PLEURAL SPACE: No ascites or effusions. OTHER: No other significant findings. IMPRESSION: GALLSTONES. NO OTHER SIGNIFICANT FINDINGS. TECHNICAL DOCUMENTATION: JOB ID: [id number] 2010 [employer]- All Rights Reserved Reading location - IP/workstation name: [email or web address]
[2019-08-15 15:43] LABS: APPEARANCE,URINE CLEAR; BILIRUBIN,URINE NEGATIVE (NEGATIVE); COLOR,URINE YELLOW; GLUCOSE, URINE NEGATIVE (NEGATIVE); KETONES,URINE NEGATIVE (NEGATIVE); LEUKOCYTE ESTERASE,URINE NEGATIVE (NEGATIVE); NITRITE,URINE NEGATIVE (NEGATIVE); PROTEIN,URINE NEGATIVE (NEGATIVE); URINE SPECIFIC GRAVITY 1.011; UROBILINOGEN,URINE NEGATIVE mg/dL (<2.0)
[2019-08-15 17:12] VITALS: BP 151/79
== END 2019-08-15 17:12 | disposition home or self-care (01) ==
LOC: ER 10:58
DX: R55 Syncope and collapse (principal); S06.0X1A Concussion with loss of consciousness of 30 minutes or less, initial encounter; S00.93XA Contusion of unspecified part of head, initial encounter; R51 Headache; W18.12XA Fall from or off toilet with subsequent striking against object, initial encounter; Y93.89 Activity, other specified; K80.20 Calculus of gallbladder without cholecystitis without obstruction; K59.09 Other constipation; Z79.899 Other long term (current) drug therapy; R10.817 Generalized abdominal tenderness; R11.0 Nausea; F17.200 Nicotine dependence, unspecified, uncomplicated; F12.10 Cannabis abuse, uncomplicated; Z88.0 Allergy status to penicillin; Z91.018 Allergy to other foods; Z91.040 Latex allergy status; Z91.030 Bee allergy status
CPT/HCPCS: 93005; 36415; 82550; 83735; 85025; 81025; 80053; 81001; 71045; 76705; 70450; 93010; J1885; J7030

== ENCOUNTER 2019-10-10 14:30 | Emergency (ER) | payer SELFPAY ==
[2019-10-10] MEDS ORDERED: NORMAL SALINE 1000 ML 1,000 ML IV ONE (16:06)
--- NOTE | 2019-10-10 17:05 | RADIOLOGY REPORT (SQ) ---
EXAM DESCRIPTION: CHEST SINGLE VIEW IMAGES COMPLETED DATE/TIME: 10/10/2019 4:24 pm REASON FOR STUDY: cough congestion COMPARISON: AP chest 08/15/2019 EXAM PARAMETERS: NUMBER OF VIEWS: One view. TECHNIQUE: Single frontal radiographic view of the chest acquired. RADIATION DOSE: NA LIMITATIONS: None. FINDINGS: LUNGS AND PLEURA: Diffuse right-sided ground-glass opacity is present from diffuse right-s ided airspace disease worrisome for pneumonia. Left lung clear. No pleural effusions or pneumothorax. MEDIASTINUM AND HILAR STRUCTURES: No masses. Contour normal. HEART AND VASCULAR STRUCTURES: Heart normal in size. Normal vasculature. BONES: No acute findings. HARDWARE: None in the chest. OTHER: No other significant finding. IMPRESSION: Diffuse right-sided airspace disease worrisome for pneumonia. TECHNICAL DOCUMENTATION: JOB ID: [id number] 2010 [employer]- All Rights Reserved Reading location - IP/workstation name: [email or web address]
--- NOTE | 2019-10-10 17:12 | ER Document Report ---
ED General - General Chief Complaint: Probable Seizure Stated Complaint: COUGH Time Seen by Provider: 10/10/19 15:50 Mode of Arrival: Ambulatory Information source: Patient Notes: 34-year-old female presented to ED for complaint of cough congestion right epigastric pain rating at 3 out of 5. She states she vomited multiple times this morning tasted like bile and blood. She states when she woke up she had a mouthful of blood and was throwing up. Patient states she had a seizure in August and then on for she was walking to the bathroom when she passed out she now has a ecchymosis above the left eye with a conjunctival hematoma states she knew she had already had a seizure in August so she did not seek medical attention as she has been able to see through the eye with no trouble. She states she does have a history of gallstones and a she does not smoke cigarettes but she does smoke marijuana 1 or 2 times a day. She states she has had a sore throat cough congestion but mainly the pain in the right upper quadrant. She is alert oriented respirations regular unlabored speaking in full sentences. She states she has not followed up with a neurologist since her seizure in August or a week ago. TRAVEL OUTSIDE OF THE [place] IN LAST 30 DAYS: No - HPI Onset: This morning Onset/Duration: Persistent Quality of pain: Sharp Severity: Moderate Pain Level: 3 Associated symptoms: Productive cough, Vomiting - Blood this morning none since then, Sinus pain/drainage, Sore throat, Other - Laceration to the left side of her tongue woke up vomiting blood ecchymosis above the left eye for the last week subconjunctival hemorrhage to the left eye for a week sore throat since vomiting and coughing this morning Exacerbated by: Movement Relieved by: Denies Similar symptoms previously: Yes Recently seen / treated by doctor: No - Related Data Allergies/Adverse Reactions: amoxicillin [Amoxicillin] Allergy (Verified 08/15/19 11:19) Coconut * [Coconut] Allergy (Verified 08/15/19 11:19) lactose Allergy (Verified 08/15/19 11:19) latex [Latex] Allergy (Verified 08/15/19 11:19) bees Allergy (Uncoded 08/15/19 11:19) Home Medications: prenatals Past Medical History - General Information source: Patient - Social History Smoking Status: Former Smoker Frequency of alcohol use: None Drug Abuse: Marijuana - Daily Lives with: Family Family History: None Patient has suicidal ideation: No Patient has homicidal ideation: No - Past Medical History Cardiac Medical History: Reports: None Pulmonary Medical History: Reports: Hx Bronchitis EENT Medical History: Reports: None Neurological Medical History: Reports: Hx Seizures Endocrine Medical History: Reports: None Renal/ Medical History: Reports: None Malignancy Medical History: Reports: None GI Medical History: Reports: Other - gallstones Musculoskeletal Medical History: Reports None Skin Medical History: Reports None Psychiatric Medical History: Reports: None Traumatic Medical History: Reports: None Infectious Medical History: Reports: None Past Surgical History: Reports: Hx Section - Immunizations Hx Diphtheria, Pertussis, Tetanus Vaccination: Yes - 2007 Review of Systems - Review of Systems Constitutional: No symptoms reported EENT: Nose discharge, Mouth pain - Laceration to the lateral aspect of the right side of tongue, Other - Conjunctival hematoma. denies: Eye pain, Eye dischar ge, Blurred vision Cardiovascular: No symptoms reported Respiratory: Cough Gastrointestinal: Abdominal pain - Right upper quadrant, Nausea, Vomiting Genitourinary: No symptoms reported Female Genitourinary: No symptoms reported Musculoskeletal: No symptoms reported Skin: Other - Ecchymosis to the left face above the left eye Hematologic/Lymphatic: No symptoms reported Neurological/Psychological: No symptoms reported -: Yes All other systems reviewed and negative Physical Exam - Vital signs Vitals: Temp Pulse Resp BP Pulse Ox 99.2 F 81 16 115/72 97 10/10/19 14:34 10/10/19 14:34 10/10/19 14:34 10/10/19 14:34 10/10/19 14:34 Interpretation: Normal - General General appearance: Appears well, Alert - HEENT Head: Normocephalic, Atraumatic Eyes: Normal Conjunctiva: Other - Hematoma Pupils: PERRL Ears: Normal External canal: Normal Tympanic membrane: Normal Sinus: Normal Nasal: Swelling, Clear rhinorrhea Mouth/Lips: Other - Small laceration to the right lateral aspect of the tongue Pharynx: Erythema, Post nasal drainage. No: Exudate Neck: Normal - Respiratory Respiratory status: No respiratory distress Chest status: Nontender Breath sounds: Productive cough Chest palpation: Normal - Cardiovascular Rhythm: Regular Heart sounds: Normal auscultation Murmur: No - Abdominal Inspection: Normal Distension: No distension Bowel sounds: Normal Tenderness: Gipson's sign, Guarding Organomegaly: No organomegaly - Back Back: Normal, Nontender - Extremities General upper extremity: Normal inspection, Nontender, Normal color, Normal ROM, Normal temperature General lower extremity: Normal inspection, Nontender, Normal color, Normal ROM, Normal temperature, Normal weight bearing. No: Amberly's sign - Neurological Neuro grossly intact: Yes Cognition: Normal Orientation: AAOx4 [place] Coma Scale Eye Opening: Spontaneous [place] Coma Scale Verbal: Oriented Yaniv Coma Scale Motor: Obeys Commands [place] Coma Scale Total: 15 Speech: Normal Cranial nerves: Normal Cerebellar coordination: Normal Motor strength normal: LUE, RUE, LLE, RLE Additional motor exam normals: Equal family and divorce legal assistant Babinski reflex: Normal (flexor plantar) Sensory: Normal - Psychological Associated symptoms: Normal affect, Normal mood - Skin Skin Temperature: Warm Skin Moisture: Dry Skin Color: Normal, Ecchymosis Location of irregularity: Face Irregularity with: Swelling, Tenderness Course - Re-evaluation Re-evalutation: 10/10/19 23:41 Patient's chest x-ray came back positive for right diffuse pneumonia. She also had an obvious seizure last night. I discussed her assessment and history with . She recommended consulting neurology in [place] to schedule follow-up and to start the patient on tonight before discharge. She also recomm ended starting the patient on a azithromycin. Neurology in [place] was consulted spoke with Maria Luisa Diez NP who stated that her office would call the patient and schedule follow-up with Dr. Beckett for her seizures. Patient also complained of right upper quadrant abdominal pain. Ultrasound was completed that showed possible gallstones but no cholecystitis. Patient was recommended that she also follow-up with a surgeon if she continued to have the pain in the right upper quadrant. Patient was discharged home with prescription for Keppra 500 mg twice daily and azithromycin 500 mg x [address] Gaspar recommendation. The neurologist was agreeable with the Keppra 1000 mg tonight IV and Keppra 500 mg twice daily. - Vital Signs Vital signs: Temp Pulse Resp BP Pulse Ox 98.3 F 74 18 144/82 H 98 10/10/19 20:10 10/10/19 20:10 10/10/19 20:10 10/10/19 20:10 10/10/19 20:10 - Laboratory Result Diagrams: 10/10/19 16:40 10/10/19 16:40 Laboratory results interpreted by me: 10/10/19 10/10/19 16:40 16:40 WBC 16.3 H Absolute Neuts (auto) 13.1 H Seg Neutrophils % 80.2 H Sodium 136.0 L - Diagnostic Test Radiology reviewed: Image reviewed, Reports reviewed Discharge - Discharge Clinical Impression: Seizure, Conjunctival hemorrhage of left eye, covid testing Pneumonia Qualifiers: Pneumonia type: due to unspecified organism Laterality: right Lung location: unspecified part of lung Qualified Code(s): J18.9 - Pneumonia, unspecified organism Facial contusion Qualifiers: Encounter type: initial encounter Qualified Code(s): S00.83XA - Contusion of other part of head, initial encounter Tongue laceration Qualifiers: Encounter type: initial encounter Qualified Code(s): S01.512A - Laceration without foreign body of oral cavity, initial encounter Condition: Stable Disposition: HOME, SELF-CARE Additional Instructions: PNEUMONIA: Your examination indicates that you have pneumonia. This is an infection of the lung tissue, usually caused by bacteria or a virus. Symptoms include cough, fever, shaking chills, chest pain, shortness of breath, and coughing up bloody sputum. Treatment for bacterial pneumonia includes rest, antibiotics for 10 to 14 days, increasing your clear liquid intake, a cool mist humidifier at your bedside, and fever medication. Often, a repeat chest X-ray is performed in a few weeks--even if you feel better--to ascertain whether the infection has completely resolved and no underlying lung problem is present. You should call the physician if you develop persistent vomiting, high fever that does not respond to fever medication, increasing shortness of breath, confusion, or lethargy. Also, failure to improve within two to three days is an indication for re-examination. Seizure You have had a seizure. Seizure disorders (epilepsy) of one sort or another affect about one out of 50 people. The seizure occurs because of abnormal electrical activity in the brain. Seizures may be due to drugs and alcohol, strokes, brain injury, or infection. In the most common form of epilepsy, no cause can be found. You will require further evaluation to determine the cause of your seizure, and to determine whether anti-seizure medication is required. This follow-up testing is important, so please call us if you encounter problems with scheduling of tests or appointments. YOU SHOULD NOT DRIVE until released to do so by your physician. The law requires that seizures be reported to the [place] driver's license bureau--a seizure while driving could be catastrophic. Call the doctor if seizures recur, or if you develop new symptoms such as fever, severe headache, stiff neck, confusion or increasing sleepiness, weakness or numbness, or visual problems. ORAL LACERATION, NOT SUTURED: The laceration in your mouth was not sutured because the physician felt it would heal well without it. Suturing does increase the risk of infection somewhat, as germs in the wound are trapped inside. Most cuts in the mouth heal quickly with no significant scar. The wound will appear white and rough tomorrow. This unusual appearance is normal for an oral laceration, and will persist until healing is complete. You should rest for 24 hours to minimize swelling. Avoid tart or spicy foods, or hard foods which might stick in the cut (like tortilla chips), for a few days. If any signs of infection occur (swelling, redness of the skin directly over the laceration area, increasing tenderness, tender lumps below the jaw or on the sides of the neck, or fever), see the doctor immediately. You will be started on Keppra today IV Keppra. He will get a dose now and we will be starting on Keppra for 12 hours. AZITHROMYCIN: Azithromycin (Zithromax) is a broad spectrum antibiotic in the same class as erythromycin. It can treat a variety of bacterial infections, but is most frequently used for respiratory infections. Azithromycin is extremely long-lasting. It accumulates in body tissues and continues to kill bacteria for many days. In order to improve absorption, Azithromycin should be taken at least one hour before or two hours after a meal. It does not have the same strong tendency to upset the stomach as erythromycin and is usually very well tolerated. Patients who have had a rash or other true allergic reactions to eryth romycin should not take this medication. Call if you develop gastrointestinal distress, severe diarrhea, rash, hives, itching, or shortness of breath. USE OF ACETAMINOPHEN (Tylenol): Acetaminophen may be taken for pain relief or fever control. It's much safer than aspirin, offering a wider range of "safe" dosages. It is safe during . Some brand names are Tylenol, Panadol, Datril, Anacin 3, Tempra, and Liquiprin. Acetaminophen can be repeated every four hours. The following ar e maximum recommended dosages: WEIGHT Dose Drops Elixir Chewable(80mg) (LBS.) drprs=droppers tsp=teaspoon 6 40 mg 0.4 ml (1/2) 6-11 80 mg 0.8 ml (full) tsp 1 tab 12-16 120 mg 1 1/2 drprs 3/4 tsp 1 1/2 tabs 17-23 160 mg 2 drprs 1 tsp 2 tabs 24-30 240 mg 3 drprs 1 1/2 tsp 3 tabs 30-35 320 mg 2 tsp 4 tabs 36-41 360 mg 2 1/4 tsp 4 1/2 tabs 42-47 400 mg 2 1/2 tsp 5 tabs 48-53 480 mg 3 tsp 6 tabs 54-59 520 mg 3 1/4 tsp 6 1/2 tabs 60-64 560 mg 3 1/2 tsp 7 tabs 65-70 600 mg 3 3/4 tsp 7 1/2 tabs 71-76 640 mg 4 tsp 8 tabs 77-82 720 mg 4 1/2 tsp 9 tabs 83-88 800 mg 5 tsp 10 tabs >89 pounds or adults 650 mg to 900 mg Acetaminophen can be repeated every four hours. Maximum dose not to exceed 4000 mg a day. These maximum recommended dosages are slightly higher than the dosages written on the product container, but these dosages are very safe and below the toxic dosage for acetaminophen. Salt and soda solution 1 quart of water 1 tablespoon of salt 1 teaspoon of baking soda Mixed 3 ingredients together and boil for 1 minute Placed in a covered quart jar Use 1/2 ounce of cold solution to gargle 3 times a day Patient was provided with discharge information including: As a person under investigation for Covid 19, the [place] department of Health and Human Services, division of public health advises you to adhere to the following guidance until your test results are reported to you. If your test result is positive, you will receive additional information from your provider and your local health department at that time. Remain at home until you are cleared by the health provider or public health authorities. Keep a log of visitors to your home, notify any visitors to your home of your isolation status. If you plan to move to a new address or leave the county, notify the local health department in your County. Call your doctor or seek care if you have an urgent medical need. Before seeking medical care, call ahead to get instructions from the provider before arriving at the medical office clinic or hospital. Notify them that you are being tested for the virus that causes Covid 19 so that arrangements can be made, as necessary, to prevent transmission to others in the healthcare setting. Next, notify the local health department in your county. If a medical emergency arises and you need to call 911, inform the first responders that you are being tested for the virus that causes Covid 19. Next, notify the local health department in your county. FOLLOW-UP CARE: If you have been referred to a physician for follow-up care, call the physicians office for an appointment as you were instructed or within the next two days. If you experience worsening or a significant change in your symptoms, notify the physician immediately or return to the Emergency Department at any time for re-evaluation. I spoke with Maria Luisa Diez CRYSTAL FINISHER stated that neurology would be calling you for follow-up. The doctor you will be following with is Dr. Argueta . They should be calling you to schedule follow-up appointment for your seizures Prescriptions: Azithromycin 500 mg PO BID #8 tablet Levetiracetam [Keppra 500 mg Tablet] 500 mg PO Q12 #60 tablet Forms: Treatment of Relative/Child
[2019-10-10 17:17] LABS: ABSOLUTE BASOPHILS # (AUTO) 0.2 10^3/uL (0.0-0.2); ABSOLUTE EOSINOPHILS # (AUTO) 0.1 10^3/uL (0.0-0.6); ABSOLUTE LYMPHOCYTES (AUTO) 2.3 10^3/uL (0.5-4.7); ABSOLUTE MONOCYTES (AUTO) 0.6 10^3/uL (0.1-1.4); ABSOLUTE NEUT (AUTO) 13.1 10^3/uL (1.7-8.2); EOSINOPHILS % (AUTO) 0.8 % (0-6); HEMATOCRIT 41.9 % (36.0-47.0); HEMOGLOBIN 14.2 g/dL (12.0-15.5); LYMPHOCYTES % (AUTO) 14.2 % (13-45); MEAN CORPUSCULAR HEMOGLOBIN 31.3 pg (27.0-33.4); MEAN CORPUSCULAR HGB CONC 33.9 g/dL (32.0-36.0); MEAN CORPUSCULAR VOLUME 92 fl (80-97); MONOCYTES % (AUTO) 3.8 % (3-13); PLATELET COUNT 265 10^3/uL (150-450); RED BLOOD COUNT 4.54 10^6/uL (3.72-5.28); SEGMENTED NEUTROPHILS % (AUTO) 80.2 % (42-78); TOTAL CELLS COUNTED % (AUTO) 100 %; WHITE BLOOD COUNT 16.3 10^3/uL (4.0-10.5)
[2019-10-10 17:21] LABS: APPEARANCE,URINE CLEAR; BILIRUBIN,URINE NEGATIVE (NEGATIVE); COLOR,URINE YELLOW; GLUCOSE, URINE NEGATIVE (NEGATIVE); KETONES,URINE NEGATIVE (NEGATIVE); PROTEIN,URINE NEGATIVE (NEGATIVE); URINE SPECIFIC GRAVITY 1.014; UROBILINOGEN,URINE NEGATIVE mg/dL (<2.0)
[2019-10-10 17:40] LABS: ALBUMIN 4.3 g/dL (3.5-5.0); ALKALINE PHOSPHATASE 60 U/L (38-126); ANION GAP 7 (5-19); ASPARTATE AMINO TRANSFERASE 28 U/L (14-36); BILIRUBIN,DIRECT 0.1 mg/dL (0.0-0.4); BILIRUBIN,TOTAL 0.6 mg/dL (0.2-1.3); BLOOD UREA NITROGEN 9 mg/dL (7-20); CALCIUM 9.8 mg/dL (8.4-10.2); CARBON DIOXIDE 28 mmol/L (22-30); CHLORIDE 101 mmol/L (98-107); GLUCOSE 96 mg/dL (75-110); POTASSIUM 4.5 mmol/L (3.6-5.0); TOTAL PROTEIN 7.4 g/dL (6.3-8.2)
[2019-10-10 17:57] LABS: A TYPE INFLUENZA AG NEGATIVE (NEGATIVE); B INFLUENZA AG NEGATIVE (NEGATIVE)
--- NOTE | 2019-10-10 18:14 | RADIOLOGY REPORT (SQ) ---
EXAM DESCRIPTION: U/S ABDOMEN LTD W/DOPPLER IMAGES COMPLETED DATE/TIME: 10/10/2019 6:01 pm REASON FOR STUDY: right upper quad pain with hx of gallstones COMPARISON: 08/15/2019 TECHNIQUE: Dynamic and static grayscale images acquired of the abdomen and recorded on PACS. Lennyo eve selected color Doppler and spectral images recorded. LIMITATIONS: None. FINDINGS: PANCREAS: No masses. Visualized pancreatic duct normal caliber. LIVER: The liver measures 17.2 cm in length, at the upper limits of normal for size. Echotexture no rmal. LIVER VASCULATURE: Normal directional flow of the main portal vein and hepatic veins. GALLBLADDER: Nonmobile nonshadowing echogenic focus within the gallbladder lumen, considerations for this finding includes stone versus possible polyp. The gallbladder wall measures 3.0 mm, at the upp er limits of normal wall thickness. No pericholecystic fluid. ULTRASOUND-DETECTED GIPSON'S SIGN: Positive. INTRAHEPATIC DUCTS AND COMMON DUCT: CBD measures 5.0 mm in diameter, normal. The intrahepatic ducts normal caliber. No filling defects. INFERIOR VENA CAVA: Normal flow. AORTA: The proximal and mid segments are patent. The distal segment is obscured by overlying bowel gas. RIGHT KIDNEY: The right kidney measures 11.1 cm in length, normal size. Normal echogenicity. No meri id or suspicious masses. No hydronephrosis. No calcifications. PERITONEAL AND RIGHT PLEURAL SPACE: No ascites or effusions. OTHER: No other significant findings. IMPRESSION: 1. A nonmobile non shadowing 5 mm echogenic focus within the gallbladder lumen may repr esent gallstone versus polyp. 2. POSITIVE Gipson's sign. Correlation suggested. 3. No evidence of biliary obstruction. 4. The distal segment of the abdominal aorta is obscured by overlying bowel gas. TECHNICAL DOCUMENTATION: JOB ID: [id number] 2010 [employer]- All Rights Reserved Reading location - IP/workstation name: [email or web address]
[2019-10-10] MEDS ORDERED: AZITHROMYCIN 250 MG TABLET PO ONE (19:13)
[2019-10-10] MEDS ORDERED: LEVETIRACETAM 1000 MG/NACL-ISO 1,000 MG/100 ML RTUPB IV ONE (19:13)
[2019-10-10 20:11] VITALS: BP 144/82
== END 2019-10-10 20:43 | disposition home or self-care (01) ==
LOC: ER 14:30
DX: S01.512A Laceration without foreign body of oral cavity, initial encounter (principal); R56.9 Unspecified convulsions; H11.32 Conjunctival hemorrhage, left eye; J18.9 Pneumonia, unspecified organism; R05 Cough; R09.81 Nasal congestion; R10.13 Epigastric pain; R11.10 Vomiting, unspecified; H57.12 Ocular pain, left eye; F12.90 Cannabis use, unspecified, uncomplicated; R09.89 Other specified symptoms and signs involving the circulatory and respiratory systems; J02.9 Acute pharyngitis, unspecified; K08.89 Other specified disorders of teeth and supporting structures; X58.XXXA Exposure to other specified factors, initial encounter; Z87.891 Personal history of nicotine dependence; Z88.1 Allergy status to other antibiotic agents; Z88.8 Allergy status to other drugs, medicaments and biological substances; Z20.828 Contact with and (suspected) exposure to other viral communicable diseases
CPT/HCPCS: 99284; 96361; 96374; 86900; 86901; 36415; 87070; 86850; 87880; 84702; 83690; 85025; 87635; 80053; 81001; 87804; 71045; 76705; 93976; J7030; J1953

== ENCOUNTER → 2019-12-13 | Outpatient (CLI) | payer MEDICAID, OTHER ==
--- NOTE | 2019-12-13 16:05 | RADIOLOGY REPORT (SQ) ---
EXAM DESCRIPTION: NM HIDA SCAN WITH CCK IMAGES COMPLETED DATE/TIME: 12/13/2019 3:50 pm REASON FOR STUDY: RUQ ABD PAIN R10.11 RIGHT UPPER QUADRANT PAIN COMPARISON: None. RADIONUCLIDE AND DOSE: DOSAGE RADIONUCLIDE: 5 millicuries Tc99m Mebrofenin. DOSAGE CCK: 1.6 micrograms. DOSAGE MORPHINE: Not required. The route of agent administration: Intravenous TECHNIQUE: Serial imaging right upper quadrant up to 60 minutes following injection of radionuclide. CCK injected after gallbladder visualized. LIMITATIONS: None. FINDINGS: LIVER: Normal visualization without areas of photopenia. INTRAHEPATIC BILE DUCTS: Normal size and no delay in visualization. COMMON BILE DUCT: Normal without dilatation. GALLBLADDER: Normal visualization. Calculated ejection fraction of 85%. Normal range is greater th an 35%. PHYSICAL RESPONSE: Patients presenting complaint was reproduced. OTHER: No other significant finding. IMPRESSION: Normal gallbladder ejection fraction of 85%. Patient's symptoms were reproduced with CC K administration. TECHNICAL DOCUMENTATION: JOB ID: [id number] 2010 [employer]- All Rights Reserved Reading location - IP/workstation name: [email or web address]
== END ==
LOC: RAD 13:04
PROVIDERS: ATTEND Internal Medicine Gastroenterology
DX: R10.11 Right upper quadrant pain (principal)
CPT/HCPCS: 78227; J2805; A9537; Q9969

== ENCOUNTER 2020-04-08 17:55 | Emergency (ER) | payer OTHER ==
[2020-04-08] MEDS ORDERED: LEVETIRACETAM 1000 MG/NACL-ISO 1,000 MG/100 ML RTUPB IV ONE (18:38)
[2020-04-08 18:48] LABS: ABSOLUTE BASOPHILS # (AUTO) 0.1 10^3/uL (0.0-0.2); ABSOLUTE EOSINOPHILS # (AUTO) 0.1 10^3/uL (0.0-0.6); ABSOLUTE MONOCYTES (AUTO) 0.5 10^3/uL (0.1-1.4); ABSOLUTE NEUT (AUTO) 5.5 10^3/uL (1.7-8.2); BASOPHILS % (AUTO) 0.7 % (0-2); EOSINOPHILS % (AUTO) 1.4 % (0-6); HEMATOCRIT 36.5 % (36.0-47.0); HEMOGLOBIN 12.6 g/dL (12.0-15.5); MEAN CORPUSCULAR HEMOGLOBIN 31.5 pg (27.0-33.4); MEAN CORPUSCULAR HGB CONC 34.5 g/dL (32.0-36.0); MEAN CORPUSCULAR VOLUME 91 fl (80-97); PLATELET COUNT 229 10^3/uL (150-450); RED CELL DISTRIBUTION WIDTH 13.7 % (11.5-14.0); SEGMENTED NEUTROPHILS % (AUTO) 59.9 % (42-78); TOTAL CELLS COUNTED % (AUTO) 100 %; WHITE BLOOD COUNT 9.2 10^3/uL (4.0-10.5)
[2020-04-08 19:06] LABS: ALKALINE PHOSPHATASE 57 U/L (38-126); ANION GAP 10 (5-19); ASPARTATE AMINO TRANSFERASE 18 U/L (14-36); BILIRUBIN,DIRECT 0.3 mg/dL (0.0-0.4); BILIRUBIN,TOTAL 0.3 mg/dL (0.2-1.3); BLOOD UREA NITROGEN 10 mg/dL (7-20); CALCIUM 9.3 mg/dL (8.4-10.2); CARBON DIOXIDE 21 mmol/L (22-30); CHLORIDE 108 mmol/L (98-107); GLUCOSE 105 mg/dL (75-110); POTASSIUM 3.6 mmol/L (3.6-5.0); TOTAL PROTEIN 7.1 g/dL (6.3-8.2)
--- NOTE | 2020-04-08 19:31 | RADIOLOGY REPORT (SQ) ---
EXAM DESCRIPTION: CT HEAD WITHOUT IMAGES COMPLETED DATE/TIME: 04/08/2020 7:18 pm REASON FOR STUDY: fall/ njury COMPARISON: 08/15/2019 TECHNIQUE: Axial images acquired through the brain without intravenous contrast. Images reviewed wi th bone, brain and subdural windows. Additional sagittal and coronal reconstructions were generated. Images stored on PACS. All CT scanners at this facility use dose modulation, iterative reconstruction, and/or weight based d osing when appropriate to reduce radiation dose to as low as reasonably achievable (ALARA). [facility]: Dose Right [facility]: CareDose [facility]: Dose Right [facility]: Teradose 4D [facility]: Smart [employer] RADIATION DOSE: CT Rad equipment meets quality standard of care and radiation dose reduction techniq ues were employed. CTDIvol: 53.2 mGy. DLP: 937 mGy-cm. mGy. LIMITATIONS: None. FINDINGS: VENTRICLES: Normal size and contour. CEREBRUM: No masses. No hemorrhage. No midline shift. No evidence for acute infarction. Normal gra y/white matter differentiation. No areas of low density in the white matter. CEREBELLUM: No masses. No hemorrhage. No alteration of density. No evidence for acute infarction. EXTRAAXIAL SPACES: No fluid collections. No masses. ORBITS AND GLOBE: No intra- or extraconal masses. Normal contour of globe without masses. CALVARIUM: No fracture. PARANASAL SINUSES: Marked mucoperiosteal thickening in the maxillary sinuses with almost complete opa cification of the right. SOFT TISSUES: No mass or hematoma. OTHER: No other significant finding. IMPRESSION: Extensive maxillary sinus disease with no acute intracranial imaging finding. EVIDENCE OF ACUTE STROKE: NO. COMMENT: Quality ID # [id number]: Final reports with documentation of one or more dose reduction techniques (e.g., Automated exposure control, adjustment of the mA and/or kV according to patient size, use of iterative reconstruction technique) TECHNICAL DOCUMENTATION: JOB ID: [id number] 2010 [employer]- All Rights Reserved Reading location - IP/workstation name: [email or web address]
[2020-04-08] MEDS ORDERED: ACETAMINOPHEN 325 MG TABLET PO ONE (20:43)
--- NOTE | 2020-04-08 20:43 | ER Document Report ---
Entered by YOON MORENO SCRIBE 04/08/20 1849 Acting as scribe for:ASHLEY MARQUEZ DO ED General - General Chief Complaint: Seizure Stated Complaint: SEIZURE Time Seen by Provider: 04/08/20 18:20 Primary Care Provider: LISE HARRIS MD [Primary Care Provider] - Follow up as needed Information source: Patient Notes: This 34 year old female patient presents to the emergency department today with arrival in a c-collar via EMS for a witnessed seizure. Patient reports history of seizures when she was a child. Patient states she is on medication, takes it x1 at night, and recently increased her dosage. 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 Patient states the last thing she remembers is parking and walking from her car. Patient reports pain to her forehead and denies biting her tongue, neck pain, or damaging her teeth. TRAVEL OUTSIDE OF THE [place] IN LAST 30 DAYS: No - Related Data Allergies/Adverse Reactions: amoxicillin [Amoxicillin] Allergy (Verified 08/15/19 11:19) Coconut * [Coconut] Allergy (Verified 08/15/19 11:19) lactose Allergy (Verified 08/15/19 11:19) latex [Latex] Allergy (Verified 08/15/19 11:19) bees Allergy (Uncoded 08/15/19 11:19) Home Medications: Keppra Past Medical History - General Information source: Patient - Social History Smoking Status: Current Some Day Smoker Cigarette use (# per day): Yes Frequency of alcohol use: Occasional Drug Abuse: Marijuana Lives with: Family Family History: None Pulmonary Medical History: Reports: Hx Bronchitis Neurological Medical History: Reports: Hx Seizures Past Surgical History: Reports: Hx Section - Immunizations Hx Diphtheria, Pertussis, Tetanus Vaccination: Yes - 2007 Review of Systems - Review of Systems Constitutional: No symptoms reported EENT: See HPI. denies: Dental problem Cardiovascular: No symptoms reported Respiratory: No symptoms reported Gastrointestinal: No symptoms reported Genitourinary: No symptoms reported Female Genitourinary: No symptoms reported Musculoskeletal: See HPI, Other - pain forehead. denies: Neck pain Skin: No symptoms reported Hematologic/Lymphatic: No symptoms reported Neurological/Psychological: See HPI, Seizure -: Yes All other systems reviewed and negative Physical Exam - Vital signs Vitals: Temp 98.2 F 04/08/20 17:55 - General General appearance: Appears well, Alert - HEENT Eyes: Normal Pupils: PERRL Mouth/Lips: Normal Notes: 4 cm area of soft tissue swelling to the medial frontal region with a small abrasion. No active bleeding. No tenderness with palpation to the posterior cervical chain. - Respiratory Respiratory status: No respiratory distress Chest status: Nontender Breath sounds: Normal Chest palpation: Normal - Cardiovascular Rhythm: Regular Heart sounds: Normal auscultation Murmur: No - Abdominal Inspection: Normal Distension: No distension Bowel sounds: Normal Tenderness: Nontender - Extremities General upper extremity: Normal inspection, Normal ROM General lower extremity: Normal inspection, Normal ROM. No: Edema - Neurological Neuro grossly intact: Yes Cognition: Normal Orientation: AAOx4 Yaniv Coma Scale Eye Opening: Spontaneous Yaniv Coma Scale Verbal: Oriented [place] Coma Scale Motor: Obeys Commands Yaniv Coma Scale Total: 15 Speech: Normal Sensory: Normal - Psychological Associated symptoms: Normal affect, Normal mood - Skin Skin Temperature: Warm Skin Moisture: Dry Skin Color: Normal Course - Re-evaluation Re-evalutation: 04/08/20 20:40 MDM 34 year old female with known seizure disorder was going to tile picker her medicine and fell and had a generalized seizure. No fever or chills or recent illness. Taking her medicine as directed she tells me. No fever or chills. She is resting and better here after meds - keppra. Discussed the ct - sinusitis - and she expressed understanding. - Vital Signs Vital signs: Temp Pulse Resp BP Pulse Ox 98.2 F 19 127/76 H 100 04/08/20 17:55 04/08/20 20:00 04/08/20 19:31 04/08/20 20:01 - Laboratory Result Diagrams: 04/08/20 18:04 04/08/20 18:04 Laboratory results interpreted by me: 04/08/20 18:04 Chloride 108 H Carbon Dioxide 21 L Discharge - Discharge Clinical Impression: Seizure Maxillary sinusitis Qualifiers: Chronicity: acute Recurrence: non-recurrent Qualified Code(s): J01.00 - Acute maxillary sinusitis, unspecified Facial contusion Qualifiers: Encounter type: initial encounter Qualified Code(s): S00.83XA - Contusion of other part of head, initial encounter Condition: Stable Disposition: HOME, SELF-CARE Instructions: Ice Packs ([facility]), Seizure, Known Epileptic ([facility]), Sinusitis ([facility]) Additional Instructions: Use ice to the bruise on your forehead. Take tylenol for pain. Please return here for confusion, change in level or consciousness or other problems or concerns. Prescriptions: Cephalexin Monohydrate [Keflex 500 mg Capsule] 500 mg PO TID #30 capsule Referrals: LISE HARRIS MD [Primary Care Provider] - Follow up as needed I personally performed the services described in the documentation, reviewed and edited the documentation which was dictated to the scribe in my presence, and it accurately records my words and actions.
[2020-04-08 20:58] VITALS: BP 158/93
== END 2020-04-08 21:11 | disposition home or self-care (01) ==
LOC: ER 17:55
DX: G40.909 Epilepsy, unspecified, not intractable, without status epilepticus (principal); J01.00 Acute maxillary sinusitis, unspecified; S00.83XA Contusion of other part of head, initial encounter; X58.XXXA Exposure to other specified factors, initial encounter; F17.210 Nicotine dependence, cigarettes, uncomplicated
CPT/HCPCS: 99285; 96365; 36415; 85025; 80053; 70450; J1953